=== PATIENT | female | born 1980 | race Caucasian/White ===

== ENCOUNTER → 2021-04-19 | Outpatient (CLI) | payer BC, SELFPAY ==
[~2021-04-19] MED LIST: BENADRYL 25MG C25 MG PO; COLACE 100MG C100 MG PO; ESTRACE 1 MG TAB1 MG PO; IBUPROFEN600 MG PO; IBUPROFEN800 MG PO; LEXAPRO20 MG PO; LORTAB 5-325 M1 EACH PO; PREDNISONE50 MG PO; VISTARIL25 MG PO; [UNRECOGNIZED DRUG - OTHER] PO
== END ==
LOC: RAD 17:19
DX: M79.671 Pain in right foot (principal)
CPT/HCPCS: 73620

== ENCOUNTER → 2022-01-03 | Outpatient (CLI) | payer BC | LOC: RAD 11:33 | DX: M25.511 Pain in right shoulder (principal) | CPT/HCPCS: 73030 ==